=== PATIENT | female | born 1970 | race Caucasian/White ===

== ENCOUNTER 2018-10-19 05:16 | Day surgery (SDC) | payer OTHER ==
[~2018-10-19] VITALS: Ht 149.9 cm; Wt 76.2 kg
[2018-10-19] MEDS ORDERED: LACTATED RINGERS 1,000 ML IV SCH (05:40)
[2018-10-19 06:19] LABS: BASOPHILS % 0.9 % (0.0-2.0); EOSINOPHILS % 3.2 % (0.0-5.0); HEMATOCRIT. 40.3 % (36.0-48.0); HEMOGLOBIN. 13.5 g/dL (12.0-16.0); LYMPHOCYTES % 27.4 % (20.0-50.0); MEAN CORPUSCULAR HEMOGLOBIN 29.4 pg (28.0-32.0); MEAN CORPUSCULAR VOLUME 87.4 fL (81.0-99.0); MEAN PLATELET VOLUME 10.2 fl (7.4-10.4); MONOCYTES % 11.1 % (2.0-8.0); NEUTROPHILS % 57.4 % (40.0-76.0); PLATELET 263 x1000/uL (130-400); RED BLOOD CELL COUNT 4.61 mill/uL (4.2-5.4); RED CELL DISTRIBUTION WIDTH 13.9 % (11.6-14.6)
[2018-10-19 06:37] LABS: CLARITY URINE CLEAR (CLEAR); COLOR URINE YELLOW (YELLOW); KETONES URINE NEGATIVE (NEGATIVE); LEUKOCYTE ESTERASE URINE NEGATIVE (NEGATIVE); NITRITE URINE NEGATIVE (NEGATIVE); OCCULT BLOOD URINE 1+ (NEGATIVE); PROTEIN URINE NEGATIVE (NEGATIVE); SPECIFIC GRAVITY URINE 1.007 (1.005-1.030); UROBILINOGEN URINE 0.2 E.U./dL (0.2-1.0)
[2018-10-19 06:47] LABS: CHLORIDE 109 mEq/L (98-107)
[2018-10-19] MEDS ORDERED: SKIN ADHESIVE 0.7 GM EA TOP ONE (06:48)
[2018-10-19] MEDS ORDERED: BUPIVACAINE HCL 0.5% (5MG/ML) 50ML ONE (06:49)
[2018-10-19] MEDS ORDERED: FENTANYL CITRATE/PF 50MCG/ML 2ML VIAL ONE (07:03)
[2018-10-19] MEDS ORDERED: ROCURONIUM BROMIDE 10MG/ML VIAL 5ML IV ONE (07:03)
[2018-10-19] MEDS ORDERED: PROPOFOL 200MG/20ML VIAL IV ONE (07:03)
[2018-10-19] MEDS ORDERED: MIDAZOLAM HCL 2 MG/2 ML VIAL ONE (07:04)
[2018-10-19] MEDS ORDERED: GLYCOPYRROLATE 0.2 MG/ML 2ML VIAL ONE (07:04)
[2018-10-19] MEDS ORDERED: LIDOCAINE HCL/PF 1% 10 MG/ML 5ML VIAL ONE (07:05)
[2018-10-19 07:09] LABS: UCG SCREEN NEGATIVE
[2018-10-19] MEDS ORDERED: CEFAZOLIN SODIUM 1000MG/VIAL ONE (07:16)
[2018-10-19] MEDS ORDERED: ONDANSETRON HCL 4MG/2ML INJ ONE (07:19)
[2018-10-19] MEDS ORDERED: METOCLOPRAMIDE HCL 10MG/2ML VIAL ONE (07:19)
[2018-10-19] MEDS ORDERED: NEOSTIGMINE METHYLSULFATE 1MG/ML 10 ML VIAL ONE (07:58)
[2018-10-19] MEDS ORDERED: KETOROLAC 30MG/ML VIAL ONE (08:01)
[2018-10-19] MEDS ORDERED: HYDROMORPHONE HCL/PF 2MG/ML CPJ IV PRN ×2 (08:30→09:30)
[2018-10-19] MEDS ORDERED: HYDROMORPHONE HCL/PF 2MG/ML CPJ ONE (08:40)
[2018-10-19] MEDS ORDERED: HYDROCODONE/ACETAMINOPHEN 5/325MG TABLET PO NR (09:30)
[2018-10-19] MEDS ORDERED: ONDANSETRON HCL 4MG/2ML INJ IV PRN (09:30)
[2018-10-19 10:16] VITALS: BP 141/72
== END 2018-10-19 11:45 | disposition home or self-care (01) ==
LOC: OR 05:16
PROVIDERS: ATTEND Surgery
DX: K80.10 Calculus of gallbladder with chronic cholecystitis without obstruction (principal); E78.00 Pure hypercholesterolemia, unspecified; K21.9 Gastro-esophageal reflux disease without esophagitis; E66.3 Overweight; Z79.899 Other long term (current) drug therapy; Z98.890 Other specified postprocedural states
CPT/HCPCS: 36415; 47562; 80048; 81003; 81025; 85025; 88304; J0690; J1170; J1885; J2250; J2405; J2710; J2765; J3010; J3490; J2704; J7030